=== PATIENT | female | born 1975 | race Caucasian/White ===

== ENCOUNTER → 2019-11-30 | Day surgery (SDC) | payer OTHER ==
[2019-11-24 16:04] VITALS: BMI 23.6
[~2019-11-30] MED LIST: LACTATED RINGERS 1,000 ML BAG IV ONE; LACTATED RINGERS 1,000 ML IV SCH; LIDOCAINE 1% (10MG/ML) FOR IV START INTRADERMA PRN; LIDOCAINE 1% INJ 10MG/ML (20 ML MDV) ONE; MIDAZOLAM 2 MG/2 ML VIAL ONE; PROPOFOL 10 MG/ML 20 ML VIAL IV ONE
--- NOTE | 2019-11-30 08:09 | P.GSHP ---
History of Present Illness H&P Date: 11/30/19 CHIEF COMPLAINT: Colon screen HISTORY OF PRESENT ILLNESS: The patient is a 44-year-old female who presents for colon screen. Lower endoscopy was offered for further evaluation and management. PAST MEDICAL HISTORY: Please see list. PAST SURGICAL HISTORY: Please see list. MEDICATIONS: Please see list. ALLERGIES: Please see list. SOCIAL HISTORY: No illicit drug use FAMILY HISTORY: No reports of Crohn disease or ulcerative colitis. REVIEW OF ORGAN SYSTEMS: CONSTITUTIONAL: No reports of fevers or chills. PHYSICAL EXAM: VITAL SIGNS: Stable GENERAL: Well-developed pleasant in no acute distress. HEENT: No scleral icterus. Extraocular movements grossly intact. Moist buccal mucosa. NECK: Supple without lymphadenopathy. CHEST: Unlabored respirations. Equal bilateral excursions. CARDIOVASCULAR: Regular rate and rhythm. Distal 2+ pulses. ABDOMEN: Soft, nontender, nondistended. MUSCULOSKELETAL: No clubbing, cyanosis, or edema. ASSESSMENT: 1. Colon screen. PLAN: 1. Recommend proceeding with a lower endoscopy Past Medical History Past Medical History: Hyperlipidemia Additional Past Medical History / Comment(s): migraines, constipation for years, "major" bloating History of Any Multi-Drug Resistant Organisms: None Reported Past Surgical History: No Surgical Hx Reported Additional Past Surgical History / Comment(s): laparoscopy x 2 Past Anesthesia/Blood Transfusion Reactions: No Reported Reaction Smoking Status: Current every day smoker Medications and Allergies Home Medications Medication Instructions Recorded Confirmed Type Nortriptyline [Pamelor] 25 mg PO HS 12/20/14 11/24/19 History Simvastatin [Zocor] 20 mg PO HS 12/20/14 11/24/19 History buPROPion HCL [Wellbutrin XL] 450 mg PO DAILY 12/20/14 11/24/19 History Aloelax 2 tab PO HS 11/24/19 11/24/19 History Atomoxetine HCl [Strattera] 80 mg PO QAM 11/24/19 11/24/19 History Melatonin 5 mg PO HS 11/24/19 11/24/19 History Razalean 610 mg PO HS 11/24/19 11/24/19 History Topiramate [Topamax] 25 mg PO HS 11/24/19 11/24/19 History Topiramate [Topamax] 100 mg PO HS 11/24/19 11/24/19 History Vitamin B Complex 1 each PO DAILY 11/24/19 11/24/19 History Vitamin C/Biotin [Hair, Skin and 1 tab PO DAILY 11/24/19 11/24/19 History Nails] Allergies Allergy/AdvReac Type Severity Reaction Status Date / Time acetaminophen [From Vicodin] Allergy Unknown Verified 11/24/19 15:33 codeine Allergy Unknown Verified 11/24/19 15:33 hydrocodone bitartrate Allergy Unknown Verified 11/24/19 15:33 [From Vicodin] propoxyphene napsylate Allergy Unknown Verified 11/24/19 15:33 [From Darvocet-N]
--- NOTE | 2019-11-30 23:42 | P.PCN ---
Date of Procedure: 11/30/19 Description of Procedure: PREOPERATIVE DIAGNOSIS: Family history of colitis Change in bowel habits POSTOPERATIVE DIAGNOSIS: Family history of colitis Change in bowel habits Tubular adenoma sigmoid colon Melanosis coli Internal hemorrhoids, grade 2 OPERATION: Colonoscopy to the ileocecal valve and appendiceal orifice, cecum Colonoscopy with multiple hot snare polypectomies SURGEON: Nereyda Chang MD. ANESTHESIA: MAC. INDICATIONS: The patient is an 44-year-old female who presents family history of colitis and personal history of change in bowel habits. Benefits and risks were described and informed consent was obtained. DESCRIPTION OF PROCEDURE: The patient had undergone Suprep. She had been brought into the operating room and laid in the left lateral decubitus position. After adequate intravenous sedation, the rectum was examined with 2% lidocaine jelly. External hemorrhoids were encountered. The rectal tone was within normal limits. No lesions were palpated in the rectal vault. An Olympus colonoscope was advanced until the cecum, ileocecal valve and appendiceal orifice were clearly viewed. Abdominal wall pressure was used to advance the scope. The prep was good. Moderate melanosis coli was identified. No sigmoid diverticulosis was encountered. Multiple colonic polyps were found and snare polypectomy. No evidence of focal colitis was found. Retroflexion of the scope demonstrated grade 2 internal hemorrhoids without active bleeding or inflammation. The colon was desufflated. The patient had tolerated the procedure well. Withdrawal time was over 6 minutes. FINDINGS: Aronchick preparation quality scale 1 (1-5) Internal hemorrhoids, grade 2 External hemorrhoids, grade 2 No arteriovenous malformations. No sigmoid diverticulosis Moderate melanosis coli Removal of 2 polyps: - Snare polypectomy 15 cm from the anal verge, 5 mm tubulovillous adenoma polyp. - Snare polypectomy 20 cm from the anal verge, 8 mm flat villous adenoma polyp. No focal colitis. RECOMMENDATIONS: Repeat colonoscopy in 3 years, 2022 for high-risk colon polyps Plan - Discharge Summary Discharge Rx Participant: No New Discharge Prescriptions: No Action buPROPion HCL [Wellbutrin XL] 450 mg PO DAILY Simvastatin [Zocor] 20 mg PO HS Nortriptyline [Pamelor] 25 mg PO HS Topiramate [Topamax] 25 mg PO HS Topiramate [Topamax] 100 mg PO HS Raz[place]an 610 mg PO HS Vitamin C/Biotin [Hair, Skin and Nails] 1 tab PO DAILY Atomoxetine HCl [Strattera] 80 mg PO QAM Aloelax 2 tab PO HS Vitamin B Complex 1 each PO DAILY Melatonin 5 mg PO HS Discharge Medication List Nortriptyline [Pamelor] 25 mg PO HS 12/20/14 [History] Simvastatin [Zocor] 20 mg PO HS 12/20/14 [History] buPROPion HCL [Wellbutrin XL] 450 mg PO DAILY 12/20/14 [History] Aloelax 2 tab PO HS 11/24/19 [History] Atomoxetine HCl [Strattera] 80 mg PO QAM 11/24/19 [History] Melatonin 5 mg PO HS 11/24/19 [History] Razalean 610 mg PO HS 11/24/19 [History] Topiramate [Topamax] 25 mg PO HS 11/24/19 [History] Topiramate [Topamax] 100 mg PO HS 11/24/19 [History] Vitamin B Complex 1 each PO DAILY 11/24/19 [History] Vitamin C/Biotin [Hair, Skin and Nails] 1 tab PO DAILY 11/24/19 [History] Follow up Appointment(s)/Referral(s): Nereyda Chang MD [STAFF PHYSICIAN] - As Needed Patient Instructions/Handouts: Colorectal Polyps (DC) Activity/Diet/Wound Care/Special Instructions: Colonoscopy in 3 years, 2022 Discharge Disposition: HOME SELF-CARE
== END | disposition home or self-care (01) ==
LOC: ORWHC2ENDO 09:37
PROVIDERS: ATTEND Surgery Plastic and Reconstructive Surgery
DX: D12.5 Benign neoplasm of sigmoid colon (principal); K63.89 Other specified diseases of intestine; K64.1 Second degree hemorrhoids; K64.4 Residual hemorrhoidal skin tags; K63.5 Polyp of colon; E78.5 Hyperlipidemia, unspecified; G43.909 Migraine, unspecified, not intractable, without status migrainosus; F17.210 Nicotine dependence, cigarettes, uncomplicated; F31.9 Bipolar disorder, unspecified; Z88.5 Allergy status to narcotic agent; Z87.19 Personal history of other diseases of the digestive system; Z98.890 Other specified postprocedural states; Z79.899 Other long term (current) drug therapy; Z83.79 Family history of other diseases of the digestive system
CPT/HCPCS: 81025; 88305; 45385; J2250; J2001; J2704

== ENCOUNTER → 2020-05-01 | Outpatient (CLI) | payer OTHER ==
--- NOTE | 2020-05-02 13:57 | MM ---
Reason for exam: screening (asymptomatic). Last mammogram was performed 6 years and 2 months ago. History: Family history of breast cancer in mother at age 60. Physical Findings: A clinical breast exam by your physician is recommended on an annual basis and results should be correlated with mammographic findings. MG Screening Mammo w CAD Bilateral CC and MLO view(s) were taken. Prior study comparison: February 21, 2014, bilateral MG screening mammo w CAD. February 15, 2013, bilateral digital screening mammo w/CAD. The breast tissue is extremely dense which could obscure a lesion on mammography. No significant changes when compared with prior studies. ASSESSMENT: Benign, BI-RAD 2 RECOMMENDATION: Routine screening mammogram of both breasts in 1 year.
== END | disposition home or self-care (01) ==
LOC: RADMAMWWP 14:22
PROVIDERS: ATTEND Family Medicine
DX: Z12.31 Encounter for screening mammogram for malignant neoplasm of breast (principal)
CPT/HCPCS: 77067

== ENCOUNTER → 2022-10-30 | Outpatient (CLI) | payer OTHER | END | disposition home or self-care (01) | LOC: LABWHC1 11:30 | PROVIDERS: ATTEND Psychiatry & Neurology Psychiatry | DX: I45.10 Unspecified right bundle-branch block (principal); R94.31 Abnormal electrocardiogram [ECG] [EKG] | CPT/HCPCS: 93005 ==

== ENCOUNTER → 2023-11-24 | Outpatient (CLI) | payer OTHER ==
--- NOTE | 2023-11-24 15:34 | US ---
EXAMINATION TYPE: US pelvis complete transvag DATE OF EXAM: 11/24/2023 COMPARISON: US 12/27/2014 CLINICAL INDICATION: Female, 48 years old with history of N92.6 IRREGULAR MENSTRUATION; Irregular men struation. . TECHNIQUE: Transvaginal (TV) and Transabdominal (TA) . Transabdominal sonographic images of the pel vis were acquired. Transvaginal sonographic images were medically necessary to better assess the fol lowing anatomy: Endometrium and right ovary. Date of LMP: 11/10/2023 EXAM MEASUREMENTS: Uterus: 9.8 x 4.5 x 5.2 cm Endometrial Stripe: 1.15 cm Right Ovary: 4.6 x 3.0 x 2.4 cm Left Ovary: 3.3 x 2.2 x 2.2 cm 1. Uterus: Anteverted Multiple anechoic areas seen in cervix, largest measures 1.3 x 1.2 x 1.0 cm. *Hyperechoic focus seen in anterior myometrium: 0.8 x 0.3 x 0.4 cm. 2. Endometrium: Measures 1.15 cm. 3. Right Ovary: Anechoic area seen: 2.4 x 2.4 x 1.8 cm. 4. Left Ovary: Complex area seen: 1.5 x 1.6 x 1.2 cm. 5. Bilateral Adnexa: Free fluid seen within left adnexa. 6. Posterior cul-de-sac: Anechoic, fluid-appearing area seen: 4.3 x 1.1 x 1.1 cm. Calcification seen within the myometrium. Nabothian cysts identified. Anteverted uterus. Endometrium measures normal thickness. Right ovarian dominant follicular cyst. Left ovarian complex hypoechoic le chinyere without internal color flow. Simple appearing fluid within the posterior cul-de-sac. Some free f luid identified within the left adnexa. IMPRESSION: 1. Left ovarian complex lesion which may represent a hemorrhagic cyst versus endometrioma. Follow-up pelvic ultrasound in 6-12 weeks is recommended. 2. Simple appearing fluid identified within the left adnexa and posterior cul-de-sac.
== END | disposition home or self-care (01) ==
LOC: RADUSWWP 14:40
PROVIDERS: ATTEND Family Medicine
DX: Z12.31 Encounter for screening mammogram for malignant neoplasm of breast (principal); N92.6 Irregular menstruation, unspecified; D28.0 Benign neoplasm of vulva
CPT/HCPCS: 76830; 76856; 77067

== ENCOUNTER → 2023-12-01 | Outpatient (CLI) | payer OTHER ==
--- NOTE | 2023-12-01 15:20 | MM ---
Reason for Exam: Additional evaluation requested from abnormal screening. Last screening mammogram was performed less than 1 month ago. Patient History: Menarche at age 11. First Full-Term at age 18. Mother had breast cancer, age 60. Risk Values: Barb 5 year model risk: 1.7%. NCI Lifetime model risk: 16.3%. Prior Study Comparison: 02/21/2014 Bilateral Screening Mammogram, [facility]. 05/01/2020 Bilateral Screening Mammogram, [facility]. 11/24/2023 Bilateral MG screening mammo w CAD, [facility]. Tissue Density: Left: The breasts are heterogeneously dense, which may obscure small masses. Findings: Analyzed By CAD. Under compression the distortion on the mediolateral oblique view appears resolved. No residual is evident on the medial lateral view. No suspicious groups of microcalcifications, spiculated or lobular masses, architectural distortion or other secondary signs of malignancy are mammographically apparent. Overall Assessment: Probably benign, BI-RAD 3 Management: Diagnostic Mammogram of the left breast in 6 months. A negative mammogram report should not preclude additional follow up of suspicious palpable abnormalities. Patient should continue monthly self breast exam. A clinical breast exam by your physician is recommended on an annual basis and results should be correlated with mammographic findings. Note on Barb scores and lifetime risk: 1. A Barb score greater than 3% is considered moderate risk. If this is the case, consider specialist referral to assess eligibility for a risk reducing agent. 2. If overall lifetime risk for the development of breast cancer is 20% or higher, the patient may qualify for future screening with alternating mammogram and breast MRI. Electronically signed and approved by: Conner Méndez D.O. Radiologis
== END | disposition home or self-care (01) ==
LOC: RADMAMWWP 14:00
PROVIDERS: ATTEND Family Medicine
DX: R92.332 Mammographic heterogeneous density, left breast (principal); R92.8 Other abnormal and inconclusive findings on diagnostic imaging of breast; Z80.3 Family history of malignant neoplasm of breast
CPT/HCPCS: 77061; 77065

== ENCOUNTER → 2024-06-02 | Outpatient (CLI) | payer OTHER ==
--- NOTE | 2024-06-02 10:23 | MM ---
Reason for Exam: Follow-up at short interval from prior study. Last screening mammogram was performed 6 month(s) ago. Patient History: Menarche at age 11. First Full-Term at age 18. Mother had breast cancer, age 60. Risk Values: Barb 5 year model risk: 1.7%. NCI Lifetime model risk: 16.3%. Prior Study Comparison: 05/01/2020 Bilateral Screening Mammogram, [facility]. 11/24/2023 Bilateral MG screening mammo w CAD, [facility]. 12/01/2023 Left MG 3D work up w/cad LT, [facility]. Tissue Density: Left: There are scattered areas of fibroglandular density. Findings: Analyzed By CAD. Grouped calcifications seen on MLO view in the upper outer aspect also seen on exaggerated cc view approximately 14 cm from the nipple. Overall Assessment: Incomplete: need additional imaging evaluation, BI-RAD 0 Management: Diagnostic Breast Ultrasound of the right breast. Results were given to the patient verbally at the time of exam. Patient should continue monthly self-breast exams. A clinical breast exam by your physician is recommended on an annual basis. This exam should not preclude additional follow-up of suspicious palpable abnormalities. Note on Barb scores and lifetime risk: 1. A Barb score greater than 3% is considered moderate risk. If this is the case, consider specialist referral to assess eligibility for a risk reducing agent. 2. If overall lifetime risk for the development of breast cancer is 20% or higher, the patient may qualify for future screening with alternating mammogram and breast MRI. [facility], , 06/02/2024 10:20 AM. Electronically signed and approved by: Rodriguez Hess DO
== END | disposition home or self-care (01) ==
LOC: RADMAMWWP 09:35
PROVIDERS: ATTEND Family Medicine
DX: R92.8 Other abnormal and inconclusive findings on diagnostic imaging of breast (principal); R92.323 Mammographic fibroglandular density, bilateral breasts; Z80.3 Family history of malignant neoplasm of breast
CPT/HCPCS: 77061; 77065

== ENCOUNTER → 2024-09-30 | Outpatient (CLI) | payer OTHER ==
--- NOTE | 2024-09-30 08:40 | US ---
EXAMINATION TYPE: US pelvic complete DATE OF EXAM: 09/30/2024 COMPARISON: 11/24/2023 CLINICAL INDICATION: Female, 48 years old with history of R30.0 Dysuria; Menses every two weeks since 2021; ? Endometruim freeze; Laparoscopy x 2 TECHNIQUE: Transabdominal (TA). Transabdominal grayscale sonographic images of the pelvis were acquired. Transvaginal sonographic im ages were not medically necessary. Doppler imaging: Not performed. FINDINGS: Date of LMP: 1 week ago EXAM MEASUREMENTS: Uterus: 9.9 x 4.9 x 5.5 cm Endometrial Stripe: 2.0 cm Right Ovary: 3.0 x 2.1 x 2.3 cm Left Ovary: 4.8 x 2.7 x 2.7 cm 1. Uterus: Anteverted wnl 2. Endometrium: Thickened, heterogenous, and cystic area seen = 0.9 x 0.7 x 0.9 cm 3. Right Ovary: wnl 4. Left Ovary: wnl 5. Bilateral Adnexa: wnl 6. Posterior cul-de-sac: wnl Anteverted uterus without focal lesion. Thickened heterogenous appearance of the endometrium with a c ystic subcentimeter region. No increased color flow. Both ovaries appear unremarkable resolution prev iously demonstrated left ovarian complex cystic lesion. Bilateral adnexa appear unremarkable. No free fluid. IMPRESSION: Heterogenous thickened endometrium measuring up to 2 cm with a subcentimeter cystic region. Etiologie s include endometrial hyperplasia versus endometrial carcinoma versus other etiologies such as submuc osal fibroid. Recommend further evaluation with direct visualization. [facility], , 09/30/2024 8:38 AM
--- NOTE | 2024-09-30 08:44 | US ---
EXAMINATION TYPE: US abdomen complete DATE OF EXAM: 09/30/2024 COMPARISON: 04/23/2011 CLINICAL INDICATION: Female, 48 years old with history of R30.0DYSURIA R35.0 FREQUENCY OF MICTURITION ; Left flank pain extending to LLE - renal stones with UTI in August; Pain resolved, burning with urin ation with frequency and nausea. TECHNIQUE: Grayscale and color Doppler imaging of the abdomen was performed. FINDINGS: EXAM MEASUREMENTS: Liver Length: 15.9 cm Gallbladder Wall: 0.2 cm CBD: 0.2 cm, color Doppler imaging was utilized to isolate the common bile duct for measurement. Spleen: 9.6 x 3.6 x 4.2 cm Right Kidney: 12.0 x 6.5 x 4.8 cm Left Kidney: 12.1 x 5.1 x 4.5 cm FUNERAL ATTENDANT NOTES: Patient drank water and chewed gum before Appointment Pancreas: Tail obscured by overlying bowel gas Liver: wnl, no dilated ducts, masses or cysts. Gallbladder: wnl; Not fully distended Evidence for sonographic Colbert's sign: No CBD: wnl Spleen: wnl Right Kidney: wnl, No hydronephrosis, calculi or masses seen Left Kidney: wnl, No hydronephrosis, calculi or masses seen Upper IVC: wnl Abd Aorta: wnl The liver is homogenous. The intrahepatic portion of the IVC and proximal abdominal aorta are within normal limits. Somewhat contracted gallbladder. There is no evidence of cholelithiasis. Common kaden e duct is unremarkable. The visualized portions of the pancreas are homogenous. The spleen is unrem arkable. Kidneys are symmetric and free of hydronephrosis. No renal lesions are seen. IMPRESSION: Unremarkable abdominal ultrasound. [facility], , 09/30/2024 8:42 AM
== END | disposition home or self-care (01) ==
LOC: RADUSWWP 07:11
PROVIDERS: ATTEND Family Medicine
DX: N85.8 Other specified noninflammatory disorders of uterus (principal); R30.0 Dysuria; R35.0 Frequency of micturition
CPT/HCPCS: 76700; 76856